=== PATIENT | female | born 1960 | race Caucasian/White ===

== ENCOUNTER → 2020-09-12 11:02 | Outpatient (BNVA) | payer MEDICARE, MEDICAID, SELFPAY | PROVIDERS: PCP Nurse Practitioner Family; Visit Provider Emergency Medicine | DX: Z11.59 Encounter for screening for other viral diseases (principal) | CPT/HCPCS: 87635 ==

== ENCOUNTER 2020-09-16 12:23 | Outpatient (CLI) | payer MEDICARE, MEDICAID, SELFPAY ==
--- NOTE | 2020-09-16 13:09 | PFTS_ITS ---
Date of Study:09/16/20 Date of Dictation: 09/17/2020 MECHANICS: Forced vital capacity (FVC) is normal Forced expiratory volume in one second (FEV1) is normal FEV1/FVC is . FLOW VOLUME LOOP: normal . LUNG VOLUMES: Total lung capacity (TLC) is normal. Residual volume (RV) is mildly elevated DIFFUSING CAPACITY FOR CARBON MONOXIDE: normal . INTERPRETATION: The pulmonary function tests are consistent with normal spirometry and mildly elevated RV indirectly suggestive of mild obstruction. Gas transfer normal. Please correlate clinically MTDD
== END 2020-09-16 12:24 | disposition home or self-care (01) ==
LOC: RT 12:23
PROVIDERS: PCP Nurse Practitioner Family; Visit Provider Internal Medicine Pulmonary Disease
DX: J44.9 Chronic obstructive pulmonary disease, unspecified (principal)
CPT/HCPCS: 94010; 94618; 94726; 94729

== ENCOUNTER 2020-10-03 09:25 | Outpatient (CLI) | payer MEDICARE, MEDICAID, SELFPAY ==
--- NOTE | 2020-10-03 09:32 | XR_ITS ---
WS: [id number] XR chest 2V* [id number] REASON FOR EXAM: Shortness of breath FINDINGS: Mild tortuosity of the thoracic aorta with minimal calcification in the aortic arch. Normal heart siz e. No active pulmonary parenchymal or pleural disease. No significant abnormality of the bony thorax. XR/XR chest 2V* [id number] IMPRESSION: No acute chest abnormality.
== END 2020-10-03 09:26 | disposition home or self-care (01) ==
PROVIDERS: PCP Nurse Practitioner Family; Visit Provider Internal Medicine Pulmonary Disease
DX: R06.02 Shortness of breath (principal)
CPT/HCPCS: 71046

== ENCOUNTER 2020-10-11 14:12 | Outpatient (CLI) | payer MEDICARE, MEDICAID, SELFPAY ==
--- NOTE | 2020-10-11 14:19 | CT_ITS ---
WS: [id number] CT scan of the chest without IV contrast, additional two-dimensional coronal and sagittal reconstruct ion was performed. 10/11/2020 Clinical Data: To assess parenchymal changes in chronic smoker with COPD Comparison: PA and lateral chest, 10/03/2020. DLP: 816.[address] scans at [facility] use at least one of these dose optimization techniques: automat ed exposure control; mA and/or kV adjustment per patient size (includes targeted exams where dose is matched to clinical indication); or iterative reconstruction. Findings: No nodules, masses or effusions are seen. The heart size is normal with no pericardial effusion. No p neumonia or pneumothorax is seen. The pulmonary arterial system and thoracic aorta demonstrate no abn ormalities or dilatation. There is no axillary or significant mediastinal adenopathy. There is a smal l hiatal hernia. The bones of the thorax are not remarkable. The upper abdomen is not remarkable CT/CT chest wo con [id number] Impression: Negative for acute cardiopulmonary disease.
== END 2020-10-11 14:13 | disposition home or self-care (01) ==
PROVIDERS: PCP Nurse Practitioner Family; Visit Provider Internal Medicine Pulmonary Disease
DX: J44.9 Chronic obstructive pulmonary disease, unspecified (principal)
CPT/HCPCS: 71250

== ENCOUNTER 2021-01-22 09:22 | Outpatient (CLI) | payer MEDICARE, MEDICAID, SELFPAY ==
[2021-01-22 10:16] LABS: Basophils # 0.1 10^3/uL (0.0-0.1); Basophils % 0.7 %; Eosinophils # 0.3 10^3/uL (0.0-0.8); Eosinophils % 3.8 %; Hematocrit 41.4 % (37.0-47.0); Hemoglobin 13.6 g/dL (11.5-15.3); Lymphocytes # 1.8 10^3/uL (0.8-4.8); Lymphocytes % 26.1 %; Mean Corpuscular HGB Conc 32.9 g/dL (30.0-36.0); Mean Corpuscular Hemoglobin 31.1 pg (28.0-34.0); Mean Corpuscular Volume 94.5 fL (81-99); Mean Platelet Volume 9.9 fL (7.4-10.4); Monocytes # 0.4 10^3/uL (0.2-0.9); Monocytes % 6.2 %; Neutrophils # 4.43 10^3/uL (1.8-7.7); Neutrophils % 62.9 %; Nucleated Red Blood Cells % 0 %; Platelet Count 315 10^3/cmm (130-400); Red Blood Count 4.38 10^6/uL (4.1-5.3); Red Cell Distribution Width 13.3 % (12.1-15.1); White Blood Count 7.1 10^3/uL (4.0-10.0)
[2021-01-23 16:36] LABS: Alternaria Alternata (M6) Ige <0.10 kU/L; Alternaria Class 0; Bermuda Class 0; Bermuda Grass (G2) Ige <0.10 kU/L; Cat Dander (E1) Ige <0.10 kU/L; Cat Dander Class 0; Common Ragweed (Short) (W1) Ig <0.10 kU/L; D. Farinae Class 0/1; Dermatophagoides Class 0/1; Dermatophagoides Farinae (D2) 0.19 kU/L; Dermatophagoides Pteronyssinus 0.25 kU/L; Dog Dander (E5) Ige <0.10 kU/L; Dog Dander Class 0; Elm (T8) Ige <0.10 kU/L; Elm Class 0; English Plantain (W9) Ige <0.10 kU/L; English Plantain Class 0; House Dust (Greer) (H1) Ige <0.10 kU/L; House Dust (Hollister- Stier) <0.10 kU/L; House Dust Class 0; Immunoglobulin E 126 kU/L (<OR=114); Immunoglobulin E 127 kU/L (<OR=114); Johnson Grass (G10) Ige <0.10 kU/L; Johnson Grass Cl 0; June Grass Class 0; June Grass(Kentucky Blue) (G8) <0.10 kU/L; Lamb'S Quarters (Goose Foot) <0.10 kU/L; Lamb'S Quarters Class 0; Maple (Box Elder) (T1) Ige <0.10 kU/L; Maple Class 0; Meadow Fescue (G4) Ige <0.10 kU/L; Meadow Fescue Class 0; Mucor Racemosus Class 0; Oak (T7) Ige <0.10 kU/L; Oak Class 0; Orchard Grass (Cocksfoot) (G3) <0.10 kU/L; Penicillium Class 0; Penicillium Notatum (M1) Ige <0.10 kU/L; Perennial Rye Grass (G5) Ige <0.10 kU/L; Perennial Rye Grass Class 0; Ragweeed Class 0; Rough Marsh Elder (W16) Ige <0.10 kU/L; Rough Marsh Elder Class 0; Sweet Vernal Class 0; Sweet Vernal Grass (G1) Ige <0.10 kU/L; Timothy Grass (G6) Ige <0.10 kU/L; Timothy Grass Class 0
[2021-01-28 15:38] LABS: Aspergillus Fumigatus, Igg Ab, 35.1 mg/L (<=102)
== END 2021-01-22 09:23 | disposition home or self-care (01) ==
PROVIDERS: PCP Nurse Practitioner Family; Visit Provider Internal Medicine Pulmonary Disease
DX: J44.9 Chronic obstructive pulmonary disease, unspecified (principal)
CPT/HCPCS: 36415; 82785; 85025; 86003

== ENCOUNTER 2024-12-05 10:04 | Outpatient (CLI) | payer MEDICARE, SELFPAY ==
--- NOTE | 2024-12-05 10:07 | CT_ITS ---
WS: [id number] CT chest w con* [id number] HISTORY: SCREENING FOR MALIGNANT NEOPLASM OF RESP. ORGANS TECHNIQUE: Axial imaging performed through the thorax. Coronal and sagittal reformats are submitted. All CT scans at [facility] use at least one of these dose optimization techniques: automated exposure control; mA and/or kV adjustment per patient size (includes targeted exams where dose is mat ched to clinical indication); or iterative reconstruction. CONTRAST: Omnipaque 350; 100 mL IV. DLP: 295.70 mGy.cm COMPARISON: 10/11/2020 Lungs and central airway: There are a few scattered areas of groundglass attenuation and nodules whic h are 2 to 3 mm and stable since 10/11/2020. Subsegmental atelectasis LEFT lung base. Pleura: Normal. No pleural effusion. Heart and pericardium: Normal size heart with no pericardial effusion. Mediastinum and ashish: No mediastinum or hilar adenopathy. Vessels: Normal size aortic and pulmonary artery. No coronary artery calcifications. LEFT vertebral a rtery arises directly from the arch. Chest wall and lower neck: RIGHT thyroid nodule largest measures 9 mm. Upper abdomen: Hepatic steatosis and hepatic cysts. Variable enhancement within the liver. There is m ild enhancement of the gallbladder wall and adjacent liver. No stones identified on this CT. Osseous structures: No destructive process. Sclerotic focus superior endplate of one of the upper tho racic vertebral bodies was also present on the prior study but has become slightly more pronounced. CT/CT chest w con* [id number] IMPRESSION: 1. No suspicious or growing masses or nodules within the lungs. 2. There are few areas of groundglass attenuation and nodules which have been present since 2019. 3. No mediastinal or hilar adenopathy. 4. Variable enhancement throughout the liver. Suspect areas of hepatic steatos is with sparing. Very slight enhancement of the gallbladder wall. If patient is having RIGHT upper quadrant pain consider follow-up RIGHT upper quadrant ultra sound which will evaluate the gallbladder and liver further. 5. Hepatic cyst.
[2024-12-05 10:49] LABS: Blood Urea Nitrogen 10 mg/dL (8-23); Glomerular Filtration Rate 72.2 mL/min (90-130)
[2024-12-05] MEDS: iohexol 350 mg/mL 500 mL Btl (per mL) IV (10:52)
== END 2024-12-05 10:05 | disposition home or self-care (01) ==
LOC: RAD 10:06
PROVIDERS: PCP Nurse Practitioner Family; Visit Provider Nurse Practitioner Family
DX: Z12.2 Encounter for screening for malignant neoplasm of respiratory organs (principal); R93.2 Abnormal findings on diagnostic imaging of liver and biliary tract; K76.89 Other specified diseases of liver; R91.8 Other nonspecific abnormal finding of lung field; J98.11 Atelectasis; K76.0 Fatty (change of) liver, not elsewhere classified; R93.89 Abnormal findings on diagnostic imaging of other specified body structures
CPT/HCPCS: 71260; 82565; 84520